=== PATIENT | female | born 2000 | race Caucasian/White ===

== ENCOUNTER 2019-12-12 06:55 | Emergency (ER) | payer OTHER ==
[~2019-12-12] VITALS: Ht 170.2 cm; Wt 88.6 kg
[2019-12-12 07:00] VITALS: TEMP 98.6
[2019-12-12] MEDS ORDERED: NORCO 325 MG-51 TAB PO (07:40)
[2019-12-12] MEDS ORDERED: AMOXICILLIN 50500 MG PO (07:40)
[2019-12-12 07:55] VITALS: BP 137/97; PULSE 78
== END 2019-12-12 08:10 | disposition home or self-care (01) ==
LOC: COL.ER 06:55
DX: K08.89 Other specified disorders of teeth and supporting structures (principal)
CPT/HCPCS: J1885

== ENCOUNTER → 2020-03-24 | Outpatient (CLI) | payer OTHER ==
[~2020-03-24] MED LIST: AMOXICILLIN 50500 MG PO; NORCO 325 MG-51 TAB PO
== END ==
LOC: ZCOL.LAB 11:53
DX: Z20.822 Contact with and (suspected) exposure to COVID-19 (principal)